=== PATIENT | male | born 1970 | race Native Hawaiian/Other Pacific Islander ===

== ENCOUNTER 2018-09-20 13:46 | Emergency (ER) | payer BC, OTHER ==
[2018-09-20 14:03] VITALS: PULSE 86
[2018-09-20] MEDS ORDERED: solu-MEDROL 125 MG IV ONE (14:24)
[2018-09-20] MEDS ORDERED: Sodium Chloride 0.9% 1000 ML 1,000 ML IV STA (14:24)
[2018-09-20] MEDS ORDERED: BENADRYL 50 MG/ML IM ONE (14:24)
--- NOTE | 2018-09-20 14:28 | ERPHSYRPT ---
- History of Present Illness Time Seen by Provider: 09/20/18 14:26 Source: patient Exam Limitations: no limitations Patient Subjective Stated Complaint: rash, hives for two days. started on celbrex two weeks ago. got steroid shot yesterday in the office and is not getting any better. Triage Nursing Assessment: ambulated to room per self. skin w/d, color flushed , resp nonlabored. patient has hives over entire body. has taken benadryl without relief and saw [employer] SE[employer] MANAGER yesterday for a steroid shot. is also taking prednisone. Physician History: 48-year-old white male arrives with complaint of a rash and hives symptoms for 2 days. Patient states he was started on Celebrex 2 weeks ago then he developed a rash 2 days ago he was seen by a nurse practitioner given a shot of steroids. Patient states he feels like his rash is getting worse. He is not having any shortness of breath he does state the rash is pruritic. He has no fevers no sore throat. Past medical history includes a back injury Past surgical history includes. Timing/Duration: day(s) (2 days) Severity: moderate Modifying Factors: Improves With: other (on oral steroids) Associated Symptoms: rash, No nausea, No vomiting, No abdominal pain, No shortness of breath, No heartburn, No diaphoresis, No cough, No chills, No chest pain, No fever, No headaches, No loss of appetite, No malaise, No syncope , No seizure, No weakness Allergies/Adverse Reactions: celecoxib [From Celebrex] Allergy (Severe, Verified 09/20/18 13:58) Hives Home Medications: Famotidine 20 mg [Pepcid 20 MG] 20 mg PO DAILY 09/20/18 [History] Hx Tetanus, Diphtheria Vaccination/Date Given: Yes Hx Influenza Vaccination/Date Given: No Hx Pneumococcal Vaccination/Date Given: No - Review of Systems Constitutional: No Fever, No Chills Eyes: No Symptoms Ears, Nose, & Throat: No Symptoms Respiratory: No Cough, No Dyspnea Cardiac: No Chest Pain, No Edema, No Syncope Abdominal/Gastrointestinal: No Abdominal Pain, No Nausea, No Vomiting, No Diarrhea Genitourinary Symptoms: No Dysuria Musculoskeletal: No Back Pain, No Neck Pain Skin: Rash Neurological: No Dizziness, No Focal Weakness, No Sensory Changes Psychological: No Symptoms Endocrine: No Symptoms All Other Systems: Reviewed and Negative - Past Medical History Pertinent Past Medical History: Yes Other Medical History: back injury - Past Surgical History Past Surgical History: No - Social History Smoking Status: Never smoker Exposure to second hand smoke: No Drug Use: none Patient Lives Alone: No - Nursing Vital Signs Nursing Vital Signs: Initial Vital Signs Temperature 97.9 F 09/20/18 13:51 Pulse Rate 86 09/20/18 13:51 Respiratory Rate 16 09/20/18 13:51 Blood Pressure 148/98 09/20/18 13:51 O2 Sat by Pulse Oximetry 100 09/20/18 13:51 Pain Scale Pain Intensity 0 - Physical Exam General Appearance: no apparent distress, alert Eye Exam: PERRL/EOMI, eyes nml inspection Ears, Nose, Throat Exam: normal ENT inspection, TMs normal, pharynx normal, moist mucous membranes Neck Exam: normal inspection, non-tender, supple, full range of motion Respiratory Exam: normal breath sounds, lungs clear, No respiratory distress Cardiovascular Exam: regular rate/rhythm, normal heart sounds, normal peripheral pulses Gastrointestinal/Abdomen Exam: soft, normal bowel sounds, No tenderness, No mass Back Exam: normal inspection, normal range of motion, No CVA tenderness, No vertebral tenderness Extremity Exam: normal inspection, normal range of motion, pelvis stable Neurologic Exam: alert, oriented x 3, cooperative, systems applications programming lead II-XII nml as tested, normal mood/affect, nml cerebellar function, nml station & gait, sensation nml, No motor deficits Skin Exam: warm, dry, other (diffuse erythematous rash on patient's trunk and arms and legs face somewhat flushed), No rash SpO2 Interpretation: normal (100%) SpO2: 100 Ordered Tests: Active Orders 24 hr Category Date Time Status IV Insertion STAT Care 09/20/18 14:24 Active Medication Summary Discontinued Medications Generic Name Dose Route Start Last Admin Trade Name Rolandoq PRN Reason Stop Dose Admin Diphenhydramine HCl 50 mg 09/20/18 14:24 09/20/18 14:39 Benadryl 50 Mg/Ml IM 09/20/18 14:25 50 mg STAT ONE Administration Diphenhydramine HCl Confirm 09/20/18 14:36 Benadryl 50 Mg/Ml Administered 09/20/18 14:37 Dose 50 mg .ROUTE .STK-MED ONE Sodium Chloride 1,000 mls @ 999 mls/hr 09/20/18 14:24 09/20/18 14:38 Sodium Chloride 0.9% 1000 Ml IV 09/20/18 15:24 999 mls/hr .Q1H1M STA Administration Sodium Chloride Confirm 09/20/18 14:36 Sodium Chloride 0.9% 1000 Ml Administered 09/20/18 14:37 Dose 1,000 mls @ ud .ROUTE .STK-MED ONE Methylprednisolone Sodium Succinate 125 mg 09/20/18 14:24 09/20/18 14:38 Solu-Medrol 125 Mg IV 09/20/18 14:25 125 mg STAT ONE Administration Methylprednisolone Sodium Succinate Confirm 09/20/18 14:36 Solu-Medrol 125 Mg Administered 09/20/18 14:37 Dose 125 mg .ROUTE .STK-MED ONE Lab/Rad Data: Laboratory Results 09/20/18 Range/Units 14:42 Group A Strep Antibody NEGATIVE (NEGATIVE) - Progress Progress: improved Progress Note: 09/20/18 15:52 48-year-old white male who had been on Celebrex for approximately 2 weeks developed a rash 2 days ago he states it was pruritic. He was seen by his family doctor yesterday given an injection of steroids and sent home with prednisone. He states he took Benadryl yesterday. He feels like his rash is getting worse. On physical examination patient has a diffuse erythematous rash does shailesh with pressure. I cannot see any real hives. He does not have any conjunctivitis there are no spots in his mouth. I went ahead and gave the patient Solu-Medrol 125 mg IV and Benadryl 50 mg IM as well as 1 L of fluids. His facial erythema is improved. Patient's rash is clearing somewhat however some of it is still apparent he is not itching there is no wheezing he has no swelling in his throat airway is clear. Will go ahead and place patient on Benadryl 50 mg orally every 6 hours for 2-3 days. Patient had been given prednisone 60 mg daily for 2 days by his nurse practitioner he has enough for one more day Will go ahead and give him a further taper of this. Patient is to drink plenty of fluids. - Departure Time of Disposition: 15:54 Departure Disposition: Home Clinical Impression: Rash Allergic reaction caused by a drug Qualifiers: Encounter type: initial encounter Qualified Code(s): T78.40XA - Allergy, unspecified, initial encounter Condition: Fair Critical Care Time: No Referrals: KEITH HOLLIDAY [ACTIVE STAFF] - Additional Instructions: Return home. Plenty of fluids. Do not take anymore Celebrex. Tapering prednisone as directed. Benadryl 50 mg orally every 6 hours for 2-3 days hold for somnolence. Follow-up with your family doctor if symptoms are worse, no better in 48 hours, or persist longer than one week. Return for acute distress or for severe symptoms.
[2018-09-20] MEDS ORDERED: solu-MEDROL 125 MG ONE (14:36)
[2018-09-20] MEDS ORDERED: BENADRYL 50 MG/ML ONE (14:36)
[2018-09-20] MEDS ORDERED: Sodium Chloride 0.9% 1000 ML 1,000 ML ONE (14:36)
[2018-09-20 14:53] VITALS: BP 142/82
[2018-09-20 15:58] VITALS: O2SAT 100
== END 2018-09-20 15:57 | disposition home or self-care (01) ==
LOC: ED 13:46
DX: R21 Rash and other nonspecific skin eruption (principal); T78.40XA Allergy, unspecified, initial encounter
CPT/HCPCS: 36000; 87651; 96360; 96372; 96374; 99284; J1200; J2930

== ENCOUNTER 2019-10-21 09:31 | Day surgery (SDC) | payer BC, OTHER ==
--- NOTE | 2019-10-21 07:56 | HP ---
DATE OF SURGERY: 10/21/2019 HISTORY OF PRESENT ILLNESS: The patient is a 49 year-old with persistent left cervical lymphadenopathy failed to resolve recently. Family history negative for lymphoma. He denies any current night sweats. PAST MEDICAL HISTORY: He has had some reflux. PAST SURGICAL HISTORY: He denied any neck node biopsy in the past. MEDICATIONS: Pepcid, Advil. He had also taken some acyclovir and Bactrim DS in the past. ALLERGIES: CELEBREX. FAMILY HISTORY: Negative for lymphoma. There was some breast cancer, prostate cancer, heart disease and testicular cancer in the family. SOCIAL HISTORY: He denies smoking. He does drink some alcohol on a daily basis. REVIEW OF SYSTEMS: Fourteen systems reviewed. No chest pain or palpitations. Other systems negative or noncontributory as above and per preadmission questionnaire. PHYSICAL EXAMINATION: GENERAL: No acute distress. HEENT: Sclerae nonicteric. NECK: No JVD. Left cervical adenopathy. CHEST: Equal excursion, nonlabored breathing. CVS: Regular rate and rhythm. ABDOMEN: Soft. EXTREMITIES: No significant edema. NEURO: Alert, oriented, moving extremities symmetrically. No gross motor deficits noted. PSYCH: Appropriate mood and affect. LAB DATA AND TESTS: Ultrasound showed 3.6 soft tissue mass felt to be adenopathy left neck area. Parotid and submandibular glands are bilaterally symmetric IMPRESSION: Left cervical adenopathy. Given the size and failed to resolve with antibiotic trial, I feel the patient would benefit from excisional biopsy. Risks and benefits explained in detail including but not limited to bleeding or infection, risk of wound dehiscence possibly requiring packing, risk of lymphocele or seroma formation, risk of sensory or motor nerve irritation, scar formation or injury, risk of aches, pains, burning or numbness, hoarseness, risk of deviated tongue or dysarthria, risk of drooped lip but not limited to, as well as general risk of anesthesia, deep venous thrombosis, pulmonary embolism, pneumonia, will proceed with excisional biopsy of left cervical adenopathy as an outpatient. He also understands should it be a fixated node may not be able to remove the whole node but will send a large segment of node for flow cytometry. Will proceed with left cervical excisional biopsy left cervical adenopathy or nodule as an outpatient.
[~2019-10-21 09:31] MED LIST: CEFAZOLIN 2 GM-D5W BAG** 2 GM/50 ML ML IV SCH; Lactated Ringers 1,000 ML IV ONE; Lactated Ringers 1,000 ML IV SCH; Sensorcaine 0.25% 10 ML ONE
[2019-10-21] MEDS ORDERED: CEFAZOLIN 2 GM-D5W BAG** 2 GM/50 ML ML IV ONE (09:50)
[2019-10-21] MEDS ORDERED: Lactated Ringers 1,000 ML IV ONE ×2 (09:50→12:35)
[2019-10-21] MEDS ORDERED: Decadron 4 MG INJ ONE (10:36)
[2019-10-21] MEDS ORDERED: Zemuron 100 MG/10 ML ONE (10:36)
[2019-10-21] MEDS ORDERED: Zofran 4 MG/2 ML VIAL ONE (10:36)
[2019-10-21] MEDS ORDERED: SUBLIMAZE 100 MCG/2 ML ONE ×2 (10:36→12:31)
[2019-10-21] MEDS ORDERED: DIPRIVAN 200 MG/20 ML IV ONE (10:36)
[2019-10-21] MEDS ORDERED: TORAdol 30 mg Injection ONE (10:36)
[2019-10-21] MEDS ORDERED: Xylocaine-Mpf 2% 5 Ml Vial ONE (10:36)
[2019-10-21] MEDS ORDERED: NORCO 5/325 MG PO PRN (13:16)
[2019-10-21 13:35] VITALS: O2SAT 98
[2019-10-21 14:02] VITALS: BP 135/94; PULSE 77
--- NOTE | 2019-10-21 14:02 | OP ---
SURGERY DATE/TIME: 10/21/2019 1100 PREOPERATIVE DIAGNOSIS: Persistent left cervical adenopathy, failed antibiotic trial. POSTOPERATIVE DIAGNOSIS: Persistent left cervical adenopathy, failed antibiotic trial. Large lymph node with necrosis and some purulence. PROCEDURE: Excisional biopsy left cervical adenopathy with culture of necrotic drainage, sent per lymph node protocol. SURGEON: Dr. Christopher Olmstead. ANESTHESIA: General. ESTIMATED BLOOD LOSS: Minimal. INDICATIONS: As noted above. Risks and benefits explained in detail and not limited to and consent obtained. The site is confirmed and marked with the patient in the preoperative holding area. DESCRIPTION OF PROCEDURE AND FINDINGS: Taken to the operating room. General anesthesia induced. Transverse incision made back overlying the large adenopathy. Dissection carried down through the platysma. Staying below the area of the marginal mandibular nerve area, dissection carried down and a couple smaller, firmer nodes externally carefully dissected free and passed off staying directly on the lymph node. A combination of clamps, Vicryl ties, clips as necessary staying directly on the node capsule. There was a much larger about 3 cm node extending deep in the neck. Slowly and carefully staying on the capsule it was carefully mobilized upwards. However it basically ruptured. It had a large area of necrotic fluid in it and this was sent for culture. It was suctioned out of the node and this continued to be dissected out and was able to be dissected out free and passed off per lymph node protocol as well as the fluid sent for culture, to be sent for flow cytometry as well. Copious amount of irrigation irrigating until clear. Given the area of necrosis whether this is infectious necrosis or sterile necrosis is unclear. It was felt it warranted to leave in drain asked for [place] drain and only had some sort of Silastic onlay drain available. It was left down in the deep space to allow for any drainage and this is closed with 3-0 Vicryl. Superficial subcu closed with 3-0 Vicryl, skin closed with 4-0 Vicryl and 4-0 Prolene used to transfix the drain. Sterile dressing applied. The patient tolerated the procedure well. There were no immediate complications. 0.25% Marcaine local injected along the wound area. The patient tolerated the procedure well. There were no immediate complications. Findings discussed with the family out in the waiting area.
== END 2019-10-21 14:05 | disposition home or self-care (01) ==
LOC: SDC 09:31
PROVIDERS: ATTEND Surgery
DX: R59.0 Localized enlarged lymph nodes (principal); Z80.3 Family history of malignant neoplasm of breast; Z80.42 Family history of malignant neoplasm of prostate; Z80.43 Family history of malignant neoplasm of testis; Z79.899 Other long term (current) drug therapy
CPT/HCPCS: 36415; 87070; 88184; 88185; 88187; 88188; 88305; J0690; J1100; J1885; J2405; J2704; J3010; A9270-GY